=== PATIENT | male | born 1935 | race Caucasian/White ===

== ENCOUNTER 2018-01-23 06:08 | Observation (INO) ==
[2018-01-22 15:26] LABS: Basophils # (Auto) 0 K/mcL (0.0-0.3); Basophils % (Auto) 0.4 % (0.0-2.0); Eosinophils # (Auto) 0.1 K/mcL (0.0-0.7); Eosinophils % (Auto) 2.3 % (0.0-7.0); Granulocytes % (Auto) 57.5 % (38.0-78.0); Lymphocytes # (Auto) 1.9 K/mcL (1.5-4.8); Lymphocytes % (Auto) 32.2 % (15.5-49.0); Mean Cell Volume 102.4 fL (80.0-100.0); Mean Corpuscular HGB Conc 33.2 g/dL (31.0-36.0); Monocytes # (Auto) 0.4 K/mcL (0.1-0.9); Monocytes % (Auto) 7.6 % (1.0-12.0); Platelet Count 229 K/mcL (140-440); RBC 4.42 M/mcL (4.50-5.90); Red Cell Distribution Width 13.2 % (11.5-14.5)
[~2018-01-23 06:08] MED LIST: ceFAZolin 1 GM VIAL IV SCH
[2018-01-23] MEDS ORDERED: MIDAZOLAM 5 MG/5 ML VIAL IV ONE (07:30)
[2018-01-23] MEDS ORDERED: ONDANSETRON 4 MG/2 ML VIAL IV ONE (07:30)
[2018-01-23] MEDS ORDERED: LIDOCAINE HCL/PF 100 MG/5 ML SYRINGE IV ONE (07:30)
[2018-01-23] MEDS ORDERED: DEXAMETHASONE 10 MG/ML VIAL IV ONE (07:30)
[2018-01-23] MEDS ORDERED: fentaNYL 100 MCG/2 ML VIAL IV ONE (07:30)
[2018-01-23] MEDS ORDERED: PROPOFOL 200 MG/20 ML VIAL IV ONE (07:30)
[2018-01-23] MEDS ORDERED: BACITRACIN 50,000 UNIT VIAL IR ONE (08:06)
[2018-01-23] MEDS ORDERED: IPRATROPIUM/ALBUTEROL 3 ML AMPUL.NEB NEB PRN (08:46)
[2018-01-23] MEDS ORDERED: NALOXONE HCL 0.4 MG/ML VIAL IV PRN (08:46)
[2018-01-23] MEDS ORDERED: PROMETHAZINE 25 MG/ML VIAL IV PRN (08:46)
[2018-01-23] MEDS ORDERED: fentaNYL 100 MCG/2 ML VIAL IV PRN (08:46)
[2018-01-23] MEDS ORDERED: ACETAMINOPHEN 1,000 MG/100 ML BOTTLE IV ONE (08:46)
[2018-01-23] MEDS ORDERED: diphenhydrAMINE 50 MG/ML VIAL IV PRN (08:46)
[2018-01-23] MEDS ORDERED: FLUMAZENIL 0.1 MG/ML ML IV PRN (08:46)
[2018-01-23] MEDS ORDERED: MEPERIDINE 50 MG/ML INJECTION IV PRN (08:46)
[2018-01-23] MEDS ORDERED: BENZOCAINE/MENTHOL 1 LOZENGE PO PRN (08:46)
[2018-01-23] MEDS ORDERED: ONDANSETRON 4 MG/2 ML VIAL IV PRN ×3 (08:46→17:41)
[2018-01-23] MEDS ORDERED: HYDROcodone/APAP 5/325MG TABLET PO PRN (09:42)
--- NOTE | 2018-01-23 09:48 | Brief Operative Note ---
Date of procedure: 01/23/18 Pre-op diagnosis: left inguinal hernia Post-op diagnosis: other (Left inguinal hernia direct & indirect, pantaloon) Findings: Large left inguinal hernia direct sac with colon, small indirect hernia sac. Complications: none Surgeon: Christina Velasquez Estimated blood loss (cc): 15 Specimens Removed/Pathology: none sent Condition: stable Disposition: PACU
--- NOTE | 2018-01-23 11:17 | Operative Note ---
DATE OF OPERATION: 01/23/2018 PREOPERATIVE DIAGNOSIS: Symptomatic left inguinal hernia. POSTOPERATIVE DIAGNOSIS: Symptomatic left inguinal direct and indirect hernia (pantaloon hernia). PROCEDURE PERFORMED: Left inguinal hernia repair with mesh. SURGEON: Christina Velasquez M.D. ANESTHETIC: Laryngeal mask anesthesia with TAP block. INDICATIONS FOR PROCEDURE: The patient is an 82-year-old man who has a large left inguinal hernia which he has had for at least 3 years and he states has been growing in size since he first noticed it. Although he does not have obstructive symptoms, the hernia on exam appears to contain bowel and by history also seemed to contain bowel, more specifically part of his colon. He presents today for repair of the hernia. DESCRIPTION OF PROCEDURE: After obtaining informed consent, the patient was taken to the operating room where a time-out was taken to confirm that he was here for the above-stated procedure. He was given antibiotics preoperatively and SCDs were placed for DVT prophylaxis. He was placed in the supine position on the operating table and laryngeal mask anesthesia was induced. Next, a TAP block was performed by the anesthesia personnel. Next, the abdomen and groins were prepped and draped in a sterile manner. A transverse incision was made in the left groin using a scalpel. Dissection was carried down through the subcutaneous tissues and Ara's fascia using electrocautery. Bridging veins within the subcutaneous tissue were ligated with Vicryl ties during this dissection. Once the external aponeurosis was identified, it was cleared of the overlying tissue for clear identification of the operative area. An incision was made in the external oblique aponeurosis along the direction of its fibers using a scalpel. Next, this incision was extended for the full length of the skin incision using Metzenbaum scissors. The external oblique aponeurosis was reflected superiorly and inferiorly to reveal the underlying inguinal canal. The ilioinguinal nerve was identified and bluntly dissected away from surrounding tissues and reflected superiorly out of the operative field. A large bulge indicating the protruding hernia sac was identified. Blunt dissection was performed to identify the spermatic cord which was then encircled with a Ferris drain. This was used for gentle retraction of the cord throughout the procedure. Dissection of the hernia sac was performed bluntly using hemostats and peanuts for dissection. The hernia sac was noted to be primarily of a direct component, although a small indirect component was identified as well. Both sacs were dissected free beyond the inguinal floor and eventually reduced. The larger sac in the direct position, once clearly circum-delineated, with dissection was opened and revealed healthy-appearing underlying colon. The colon was left in the peritoneal cavity, and the sac was imbricated using Vicryl sutures to help reduce these tissues back into the abdomen. Next, a few stitches of Vicryl suture were used to approximate the attenuated musculature in this area to help prevent protrusion of the hernia through the defect while definitive repair was performed. A piece of Bard 3 x 6 polypropylene mesh was soaked in a bacitracin saline solution and then fashioned to fit the floor of the inguinal canal. It was used to reinforce the canal to prevent any recurrence of hernia. It was secured inferiorly to the inguinal ligament. Superiorly, it was secured with Ethibond sutures to the conjoint tendon and internal oblique fascial tissues. Laterally, the mesh was cut into two tail ends which were wrapped around the spermatic cord. The ilioinguinal nerve was returned to its normal position before finally securing of the mesh around the spermatic cord. The tail ends were secured to each other with sutures, but no sutures were placed into the tissues lateral to the cord. The two tail ends of the mesh were then tucked under the external oblique aponeurosis to allow the mesh to lie flat in position. Upon completion of repair and reinforcement of the defect and return of the cord and nerve to their normal position, the wound was irrigated with a bacitracin saline solution. The external oblique aponeurosis was closed using a running Vicryl suture. Ara's fascia was approximated with a running Vicryl suture. Skin was then closed with a 4-0 Monocryl suture in a running intracuticular fashion. The sponge and needle counts were correct at the end of the case. The patient tolerated the procedure well and there were no immediate complications. ESTIMATED BLOOD LOSS: 15 mL. IV FLUIDS: 2000 mL. URINE OUTPUT: Not measured. RC:[email or web address] Job ID: [id number] Doc ID: [id number] Christina MENDOZA
--- NOTE | 2018-01-23 15:07 | General Surgery Progress Note ---
Surgical - Auxillary Note - Subjective Patient Information: Note initiated : 01/23/18 at 3:02 pm Service Date, if different from initiated Date: [] Patient: Deep Herrera 82 y/o M admitted on for Left Inguinal Hernia Repair with mesh. Chief Complaint: [] Patient resting in stretcher. On ROS reports episode of "warmth in chest and into his left shoulder" that lasted a few minutes and then resolved. He says this did not feel like heartburn which he has had before. He reported this to nursing after it occurred but I was not notified. Denies chest pressure or pain or warmth currently. Denies lightheadedness. At that time nursing reports patient was hypertensive and a little tachy. SBP reported in the 170 range then. Repeat pressure now 155/79. Regular rate and rhythm on exam now. Left groin without drainage on dressing. Underlying tissue soft without bruising , induration or sign of hematoma. Patient to remain for extended recovery. Given recent reported symptom felt in chest will check ECG and troponin level.
[2018-01-23] MEDS ORDERED: ASPIRIN 325 MG ENTERIC COATED TABLET PO ONE (16:24)
--- NOTE | 2018-01-23 16:30 | General Surgery Progress Note ---
Surgical - Auxillary Note - Subjective Patient Information: Note initiated : 01/23/18 at 4:28 pm Service Date, if different from initiated Date: [] Patient: Deep Herrera 82 y/o M admitted on for Left Inguinal Hernia Repair with mesh. Chief Complaint: [] Troponin level at upper limit of normal. Will recheck to complete series of three Troponin levels. Admitting to observation telemetry for close monitoring. Patient informed to notify staff if any symptoms recur. Case discussed with hospitalist and consult requested.
[2018-01-23] MEDS ORDERED: SIMVASTATIN 40 MG TABLET PO ONE (17:55)
[2018-01-23] MEDS ORDERED: NITROGLYCERIN 0.4 MG TAB.SUBL SL PRN (18:36)
--- NOTE | 2018-01-23 18:58 | Internal Medicine Consult Note ---
Medical - CN: [facility] - Data of Consult Consult date: 01/23/18 Requesting Physician: Christina Velasquez Primary Care Provider: Negrito Chan Family Provider: Caden Parson - Consult Narrative Reason for consult: postoperative atypical chest symptom History of present illness: Mr. Herrera is a 82 year old M who underwent left inguinal hernia repair today. Postoperatively in recovery patient experienced around 10-15 minutes of substernal heat sensation that radiated to the neck and left shoulder. symptoms are not precipitated by exertion and eventually spontaneously resolved. EKG during the symptom was unremarkable. However hospitalist service was consulted for further evaluation. at the time of evaluation patient is immediately postoperative. He is accompanied with his daughter. He was able to answer to most of the questions. He denied associated lightheadedness chest palpitation dizziness diaphoresis. he denies prior similar symptoms. He does not describe symptom as a pressure or pain but a sensation of warmth that was discomforting. Patient does denies prior coronary artery disease/angioplasty/smoking/strong family history. Initial troponin was 0.03. EKG at baseline shows supraventricular rhythm. patient was transferred to floor for extended recovery. Patient denies recent changes in medications. He is currently not on aspirin been fairly healthy not on any medications at home. GERMAN score 2. review of systems Unlimited 8 point review of system was performed and is negative except for ones discussed above. he denies diarrhea or weight loss, heat intolerance, tremors. CC: Christina Velasquez Medical - CN: [facility] Medical history: Medical History Abdominal pain with vomiting (Chronic) Leukocytosis (Chronic) due to pancreatitis Transient global amnesia (Chronic) Schatzki's ring (Chronic) Pterygium (Chronic) Pancreatitis (Chronic) Irregular heart beat (Chronic) Ileus (Chronic) Hyperglycemia (Chronic) Herpes zoster (Chronic) Hernia (Chronic) Headache (Chronic) Gastric ulcer (Chronic) Cholecystitis (Chronic) Left inguinal hernia (Chronic) Low back pain (Chronic) Surgical History History of ERCP (Chronic 12/12/13) History of eye surgery (Chronic) right eye History of laparoscopic cholecystectomy (Chronic 12/13/13) History of laparoscopy (Chronic) Hx of rectal sphincterotomy (Chronic 12/12/13) Pertinent family history: Mother Stroke-at age 100 Hypertension Father Myocardial infarction acute-late onset Smoking status: Never smoker Have you smoked in the last 12 months: No Drug use: none Alcohol use: none Medical - CN: Meds Home Medications Medication Instructions Recorded Confirmed Type Zolpidem [Ambien] 10 mg PO HSP 01/23/18 01/23/18 History Allergies Allergy/AdvReac Type Severity Reaction Status Date / Time No Known Drug Allergies Allergy Verified 01/22/18 10:30 Medical - CN: Exam - Constitutional Vitals: Temp Pulse Resp BP Pulse Ox 98.7 F 84 16 131/90 91 01/23/18 16:14 01/23/18 13:30 01/23/18 16:14 01/23/18 16:14 01/23/18 16:14 General appearance: no acute distress Exam: alert oriented nonlabored breathing Nondistended abdomen No anxiety oral cavity dry S1 and S2 regular rhythm no murmur Chest clear to auscultation abdomen soft No joint swelling or erythema Skin no suspicious lesion Psych alert cooperative neuro nonfocal Medical - CN: Result - Labs CBC & Chem 7: 01/22/18 11:09 Labs: Cardiac Enzymes 01/23/18 Range/Units 15:08 Troponin T 0.03 (0-0.03) ng/ml Medical - CN: A/P (1) Chest pain, atypical Status: Acute Assessment and plan: * Atypical chest symptoms- immediate postoperative phase. GERMAN score 2. No prior history of CAD or active smoking. Status post aspirin/statin. Continue as needed nitrates for recurrent symptoms. Serial cardiac enzyme. If negative recommend outpatient stress testing. if positive will discussed with cardiology at tertiary Center * Inguinal hernia repair-postop day one managed by surgery Plan * serial cardiac enzymes * Telemetry monitoring * EKG * Aspirin /statin * Schedule stress test in 48 hours if cardiac enzymes negative
[2018-01-23] MEDS ORDERED: ZOLPIDEM 10 MG TABLET PO PRN (20:15)
[2018-01-23] MEDS: HYDROcodone/APAP 5/325MG TABLET PO PRN ×2 (20:57→22:30)
[2018-01-23] MEDS ORDERED: ZOLPIDEM 5 MG TABLET ONE (22:35)
[2018-01-24] MEDS ORDERED: ROPIVACAINE HCL/PF 30 ML VIAL IJ ONE (07:30)
--- NOTE | 2018-01-24 07:55 | General Surgery Progress Note ---
Surgical - Auxillary Note - Subjective Patient Information: Note initiated : 01/24/18 at 7:50 am Service Date, if different from initiated Date: [] Patient: Deep Herrera 82 y/o M admitted on 01/23/18 for Left Inguinal Hernia Repair with mesh. Chief Complaint: [] Patient feeling well this morning. Reports some soreness in left groin but no significant pain. No further chest symptoms but Troponin levels have risen over subsequent sets. Hospitalist consult obtained on admission and Dr. Maciel is following for management of cardiac issues. Vital Signs Temp Pulse Resp BP Pulse Ox 97.9 F 76 20 121/67 96 01/24/18 04:00 01/24/18 04:00 01/24/18 04:00 01/24/18 04:00 01/24/18 06:00 Period Temp Pulse Resp BP Sys/Platt Pulse Ox Last 24 Hr 97.7 F-98.7 F 67-98 13-22 121-171/67-90 91-97 Intake and Output 01/23/18 01/24/18 01/24/18 21:59 05:59 13:59 Intake Total 240 / 240 150 / 150 Balance 240 / 240 150 / 150 Weight 174 lb PE: No distress Chest: clear bilaterally CV: regular rate and rhythm ABD: soft, non tender. Left groin incision intact without erythema or discharge. No bruising or hematoma. Abnormal lab results 01/23/18 01/24/18 Range/Units 20:53 05:02 Troponin T 0.08 H* 0.10 H* (0-0.03) ng/ml A/P: s/p post left inguinal hernia repair. Anginal episode with rising troponin levels. Changes on this morning's ECG. Further cardiac management per Hospitalist service recommendations.
[2018-01-24] MEDS ORDERED: ASPIRIN 81 MG TAB.CHEW CHEWED SCH (09:00)
[2018-01-24] MEDS ORDERED: METOPROLOL TARTRATE 25 MG TABLET PO SCH (09:00)
[2018-01-24] MEDS: HYDROcodone/APAP 5/325MG TABLET PO PRN ×2 (10:38→17:40)
--- NOTE | 2018-01-24 10:46 | Internal Med Progress Note ---
Medical - PN: Subj Patient information: Note initiated : 01/24/18 at 10:44 am Service Date, if different from initiated Date: [] Patient: Deep Herrera a 82 y/o M admitted on 01/23/18 for Left Inguinal Hernia Repair with mesh. Chief Complaint: [] Interval history: Mr. Herrera is a 82 year old M who underwent left inguinal hernia repair today. Postoperatively in recovery patient experienced around 10-15 minutes of substernal heat sensation that radiated to the neck and left shoulder. symptoms are not precipitated by exertion and eventually spontaneously resolved. EKG during the symptom was unremarkable. However hospitalist service was consulted for further evaluation. at the time of evaluation patient is immediately postoperative. He is accompanied with his daughter. He was able to answer to most of the questions. He denied associated lightheadedness chest palpitation dizziness diaphoresis. he denies prior similar symptoms. He does not describe symptom as a pressure or pain but a sensation of warmth that was discomforting. Patient does denies prior coronary artery disease/angioplasty/smoking/strong family history. Initial troponin was 0.03. EKG at baseline shows supraventricular rhythm. patient was transferred to floor for extended recovery. Patient denies recent changes in medications. He is currently not on aspirin been fairly healthy not on any medications at home. GERMAN score 2. 4/11- troponins elevated from 0.03 ->.08 ->.1. patient symptom free with no active chest pain or lightheadedness or shortness of breath. Case discussed with Stormy Castorena tax examiner Dr. Erwin Gillespie. Recommended additional 2 sets of troponin to assess plateauing also recommend Brilinta 90 twice a day along with metoprolol 25 twice a day. Director [facility] [employer] recommends if patient has recurrent symptoms will need emergent PCI however if he is symptom-free and troponins downtrending and he can be discharged with follow-up appointment with centers of cardiology for outpatient PCI. This was discussed with patient. Patient however reluctant For emergent transfer if indicated clearly understands the risk of due to NC. At this time patient is started on dual antiplatelet/metoprolol as per cardiology recommendations. - Constitutional Vitals: Vital Signs Temp Pulse Resp BP Pulse Ox 97.9 F 71 20 133/69 93 01/24/18 08:00 01/24/18 08:00 01/24/18 08:00 01/24/18 08:00 01/24/18 08:00 Period Temp Pulse Resp BP Sys/Paltt Pulse Ox Last 24 Hr 97.7 F-98.7 F 71-90 14-22 121-171/67-90 91-96 Intake and Output 01/23/18 01/24/18 01/24/18 21:59 05:59 13:59 Intake Total 240 / 240 150 / 150 Balance 240 / 240 150 / 150 Weight 174 lb Intake & Output: Intake & Output 01/23/18 01/24/18 01/24/18 21:59 05:59 13:59 Intake Total 240 / 240 150 / 150 Balance 240 / 240 150 / 150 Weight 174 lb Intake: Oral 240 / 240 150 / 150 Other: Meal Nourishment/Supplement Percent of Meal Consumed 100% Feeding Ability Independent # Voids 1 1 1 General appearance: no acute distress Exam: alert oriented No anxiety Nonlabored breathing Nondistended abdomen Medical - PN: Obj Da - Labs CBC & Chem 7: 01/22/18 11:09 Labs: Abnormal Lab Results 01/24/18 01/23/18 01/22/18 05:02 20:53 11:09 RBC 4.42 L MCV 102.4 H Troponin T 0.10 H* 0.08 H* Meds: Medications Hydrocodone Bitart/Acetaminophen ([place] 5/325mg) 0 tab PO Q4HP PRN PRN Reason: PAIN LEVEL 3-6 Last Admin: 01/24/18 10:38 Dose: 2 tab Aspirin (Aspirin) 81 mg CHEWED DAILY [facility] Metoprolol Tartrate (Lopressor) 25 mg PO BID JAYDE Morphine Sulfate (Morphine) 1 mg IV Q2HP PRN PRN Reason: PAIN LEVEL > 6 Nitroglycerin (Nitrostat) 0.4 mg SL Q5M PRN PRN Reason: Chest Pain Ondansetron HCl (Zofran) 4 mg IV Q6HP PRN PRN Reason: Nausea And Vomiting Simvastatin (Zocor) 40 mg PO HS JAYDE Zolpidem Tartrate (Ambien) 10 mg PO HSP PRN PRN Reason: Insomnia Medical - PN: A/P - Time Spent With Patient Total time spent is greater than 50% in coordination of care (as documented) at patient's floor/unit and/or counseling patient: 15 - 24 minutes (1) Chest pain, atypical Status: Acute Assessment and plan: * Non-ST elevation myocardial infarction with elevated troponins-EKG reveals anterior wall ST depression. On aspirin and statin beta lizette/Brilinta. Continue troponin trending. Possible discharge with outpatient cardiology follow-up for nonemergent PCI next week if no further symptoms and troponin downtrending. However will need emergent transfer for PCI if troponins uptrending or recurrent symptoms. Case was discussed this and use of tax examiner Dr. Erwin Gillespie. plan * dual antiplatelet * statin * Beta lizette * findings and plan as above discussed with surgery Dr. Velasquez Current Visit: Yes
[2018-01-24] MEDS ORDERED: CLOPIDOGREL 75 MG TABLET PO ONE (10:49)
[2018-01-24 11:58] LABS: Creatine Kinase 218 IU/L (24-195); Creatine Kinase MB 18.9 ng/ml (0-4.9)
--- NOTE | 2018-01-24 17:12 | Discharge Summary ---
Providers - Providers Patient information: Note initiated : 01/24/18 at 5:10 pm Service Date, if different from initiated Date: [] Patient: Deep Herrera 82 y/o M admitted on 01/23/18 for Left Inguinal Hernia Repair with mesh. Chief Complaint: [] Admitted post op for ACS. Date of admission: 01/23/18 Discharge date: 01/24/18 Attending physician: Christina Maciel with hospitalist service Primary care physician: Negrito Chan Hospitalization Hospital course: Patient was admitted for same day surgery for Left inguinal hernia repair. Surgery was uncomplicated. Post operatively in the same day surgery area he reported a "warm sensation in his chest and into his left shoulder and upper arm lasting a few minutes". Although he did not have chest pain this was concerning for cardiac event and Troponin level was sent and ECG done. ECG showed no acute changes but troponin level was at upper limit of normal. He was started on aspirin, follow up troponin levels were ordered and he was admitted to observation telemetry status for continued w/u of ACS. Dr. Maciel with the hospitalist service was consulted. Follow up troponin levels increased and changes on follow up ECG on following morning seen. Phone consult with material handler suction dredge dumping supervisor was made by Dr. Maciel with recommendation given for F/u for outpatient angiogram within the next week, due to recent surgery, if the troponin levels were not increasing further. Starting anti-platelet medications, beta lizette, aspirin and statin were also recommended. On POD#1 troponin levels had plateaued in the afternoon and patient was feeling well. One final set was ordered to confirm this plateau. In anticipation of discharge to home follow up visits scheduled in Surgery clinic, with his PCP, and in cardiology. Unfortunately the final Troponin level, initially misreported over the phone by lab, was a little higher than the previous two levels. With this finding it was discussed with the patient that discharge was not recommended and that transfer to the material handler at [facility] for angiogram as recommended. Patient stated that he did not want to transfer, did not want an angiogram and is going home. I explained our concern that labs suggest continued injury to the heart that should be addressed. He was adamant that he was going to go home and left AMA. Discharge diagnosis: Acute coronay syndrome Secondary discharge diagnosis: s/p Left inguinal hernia repair Procedures: Left inguinal hernia repair. Exam Temp Pulse Resp BP Pulse Ox 98.8 F 69 18 160/78 93 01/24/18 16:00 01/24/18 16:00 01/24/18 16:00 01/24/18 16:00 01/24/18 16:00 Discharge Plan - Patient/Caregiver Discharge Instructions Activity: increase activity as tolerated Diet: Regular Diet Additional Instructions: Brace with pillow when using abdomen muscles. This will help with pressure placed on incision site. Use heating pack for nonpharmacologic pain relief. Keep dressing dry and clean. Leave in place until seen by doctor. Call with any questions or concerns. Please call Tenisha at the [facility] [phone]. You are scheduled for an angiogram on January [address] Vail. Tenisha will give you a time for this appointment. You have new prescriptions that have been sent to [facility]. Please pick these up after your discharge from the hospital. Prescriptions: Aspirin 81 mg CHEWED DAILY #30 tab.chew Metoprolol Tartrate [Lopressor] 25 mg PO BID #30 tab Simvastatin [Zocor] 40 mg PO HS #30 tab Ticagrelor [Brilinta] 90 mg PO BID #30 tab - Follow up Plan Follow up with: Christina Velasquez MD [Physician] - 02/07/18 9:15 am (Please call Dr. Velasquez's office early Sunday morning to get an appointment to be seen on SundayJanuary 28.) Negrito Chan MD [Primary Care Provider] - 01/30/18 9:30 am Disposition: Left Against Medical Advice Prognosis: Undetermined Rehab Potential: Undetermined Pending Studies Resuscitation Status Full Code Diet Regular Diet Start SunJan 24 1744 Hydrocodone Bitart/Acetaminophen ([place] 5/325mg) 0 tab PO Q4HP PRN PRN Reason: PAIN LEVEL 3-6 Last Admin: 01/24/18 10:38 Dose: 2 tab Admin: 01/23/18 22:30 Dose: 1 tab Admin: 01/23/18 20:57 Dose: 1 tab Aspirin (Aspirin) 81 mg CHEWED DAILY [facility] Last Admin: 01/24/18 10:45 Dose: 81 mg Metoprolol Tartrate (Lopressor) 25 mg PO BID [facility] Last Admin: 01/24/18 10:45 Dose: 25 mg Shift Summary 01/24/18 04:58 Shift Summary by Alice Harris Addendum entered by Alice Harris 01/24/18 05:07: PVR 131-186mls with last void Original Note: up w/SBA gait steady, dsg to lt groin with shadow drainage only, ice packs on/ off t/o night as pt allowed, medicated with vicodin 5/325mg 1 tab x2 for groin pain and headache, pt stated 2 tabs at once works better, stated he has had a headache prior to surgery also, tolerating diet well, SR with occ. ST depression and inverted T wave- these wave forms are not consistent, no chest pain/pressure t/o night, VSS, placed on 2L d/t waveform change without changing waveform, RA 86-92 while asleep, RA while awake 92-93%, possible d/c home today with family, SL flushed and patent to LFA Initialized on 01/24/18 04:58 - END OF NOTE
[2018-01-24] MEDS ORDERED: SIMVASTATIN 40 MG TABLET PO SCH (21:00)
[2018-01-24] MEDS ORDERED: BRILINTA 90 MG TABLET PO SCH (21:00)
[2018-01-25 01:50] LABS: Creatine Kinase 210 IU/L (24-195); Creatine Kinase MB 14.4 ng/ml (0-4.9)
== END 2018-01-24 18:42 | disposition left against medical advice (07) ==
LOC: SUR 06:08 → MEDSUR 06:08 → ICU 16:40
PROVIDERS: ADMIT Surgery; ATTEND Surgery